=== PATIENT | male | born 1975 ===

== ENCOUNTER 2020-03-20 06:31 | Day surgery (SDC) | payer OTHER ==
[2020-03-17 17:48] VITALS: BMI 33.4
[2020-03-20] MEDS ORDERED: ceFAZolin SODIUM 1 GM VIAL IVPB ONE (08:05)
[2020-03-20] MEDS ORDERED: IOHEXOL 300 MG/ML INFUS..BTL IV ONE ×2 (08:05)
[2020-03-20] MEDS ORDERED: GENTAMICIN SO4 80 MG/2 ML VIAL IVPB ONE (08:05)
[2020-03-20] MEDS ORDERED: ceFAZolin SODIUM 1 GM VIAL ONE (08:08)
[2020-03-20] MEDS ORDERED: GENTAMICIN SO4 80 MG/2 ML VIAL ONE (08:08)
[2020-03-20] MEDS ORDERED: LIDOCAINE HCL/PF 2% SDV 5ML VIAL ONE (08:08)
[2020-03-20] MEDS ORDERED: PROPOFOL 20 ML ONE ×2 (08:09)
[2020-03-20] MEDS ORDERED: MIDAZOLAM HCL 2 MG/2 ML SINGLE DOSE VIAL ONE (08:35)
[2020-03-20] MEDS ORDERED: oxyCODONE HCL 5 MG TABLET PO PRN (10:16)
[2020-03-20] MEDS ORDERED: ONDANSETRON 4 MG/2 ML VIAL IVPUSH PRN (10:16)
[2020-03-20] MEDS ORDERED: PROMETHAZINE HCL 25 MG/1 ML VIAL IVPUSH PRN (10:16)
--- NOTE | 2020-03-20 11:26 | OP ---
Operative Note - Note: Operative Date: 03/20/20 Pre-Operative Diagnosis: right ureteral stone Operation: cystoscopy/right retrograde pyelogram; right ureteroscopic laser lithotripsy; right ureteral stent exchange Findings: 22+ mm x 12+ mm impacted right ureteral stone. 10 mm right lower pole renal stone. Post-Operative Diagnosis: Same as Pre-op Surgeon: Teofilo Gaffney (\) Anesthesia: General Specimens Removed: right ureteral stent Drains & Tubes with Location: 03/17 right ureteral stent Operative Report Dictated: Yes
[2020-03-20 11:54] VITALS: PULSE 87; TEMP 100
[2020-03-20 12:03] VITALS: BP 121/77
--- NOTE | 2020-03-21 07:37 | OP ---
DATE OF OPERATION: 03/20/2020 PREOPERATIVE DIAGNOSIS: Impacted 2.2 plus cm x 1.1 plus cm proximal ureteral stone. POSTOPERATIVE DIAGNOSIS: Impacted 2.2 plus cm x 1.1 plus cm proximal ureteral stone. PROCEDURE: Cystoscopy, right retrograde pyelogram, right ureteroscopic laser lithotripsy and right ureteral stent exchange. ATTENDING: Juancho Shukla MD ANESTHESIA: General. INDICATIONS: Patient has a history of an impacted proximal right ureteral stone. The patient had a stent placed in by another urologist. At this time the patient understands all risks and benefits involving laser lithotripsy of the ureteral stone. Patient accepts the risks and benefits. DESCRIPTION OF OPERATION: The patient was brought into the operating room and placed in a supine position on the operating room table. The patient was given anesthesia and preoperative antibiotics consisting of Ancef and gentamicin. Patient was then placed in the dorsal lithotomy position and prepped and draped in the usual sterile manner. Cystoscopy was performed and the right ureteral stent was noted. Initially 2 wires were placed via the collecting system under cystoscopic fluoroscopic visualization. The 2nd wire went in with mild difficulty. The right ureteral stent was then removed. At this point rigid ureteroscopy was performed. However, due to the angulation and position of the stone rigid ureteroscopy would not offer an acceptable means of performing lithotripsy of the ureteral stone. I must add that there was another stone noted in the right lower pole collecting system measuring about 1 cm. Flexible ureteroscopy was to be performed. It was decided that a 3rd wire would be placed; noted that we have 2 wires left in position during the procedure in order to assure access to the collecting system. The 3rd wire was placed; however, had penetrated the superior renal parenchyma. This is indicative of minimal renal tissue and there is a question of the amount of renal function left in this kidney after longstanding obstruction secondary to the stone. An open-ended wire was placed over the 3rd wire placed and a retrograde pyelogram performed which showed that there was no perforation and no extravasation of Hypaque outside of the kidney. This suggests the wire had penetrated the collecting system and the renal parenchyma and had exited the kidney. The wire was repositioned so it was within the kidney. Followup fluoroscopy showed no evidence of extravasation. At this point it was decided to continue with the laser lithotripsy of the ureteral stone. A holmium laser was utilized as well as a flexible ureteroscope. The flexible ureteroscope was placed over the 3rd wire that had been placed. That wire was removed, leaving 2 wires for emergency access. At this point laser lithotripsy was performed. Excellent fragmentation of the stone was performed. The stone was impacted. After 18 joules of energy had been utilized it was decided that the reduction of the stone size was adequate and the patient would benefit from extracorporeal shockwave lithotripsy of the ureteral stone with a followup ureteroscopy. In addition, the patient will be scheduled for a renal scan in order to document the amount of renal function present within this kidney. I will continue to follow the patient as an outpatient and will check a serum creatinine in 2 weeks as well. The disposition of the patient was to the recovery room. JUANCHO SHUKLA M.D. [id number]
--- NOTE | 2020-03-22 16:04 | PATH ---
Surgical Pathology Report Patient Name: PIETRO MOYA Med. Rec. #: [id number] /Age/Gender: 1975 (Age: 44) / M Account: [id number] Location: [facility] Taken: 03/20/2020 Received: 03/20/2020 Reported: 03/22/2020 Physicians: Teofilo Gaffney Specimen(s) Received OLD STENT Clinical History Calculus of right kidney Final Diagnosis OLD STENT, REMOVAL: CONSISTENT WITH SEGMENT OF STENT. GROSS EXAMINATION ONLY. Electronically Signed Michelle Villaseñor M.D. Gross Description Received fresh labeled "old stent," is a blue, coiled portion of tubing, consistent with a ureteral stent. No soft tissue is present. No sections are submitted, gross only. /03/21/2020 [facility]03/21/2020
== END 2020-03-20 12:30 | disposition home or self-care (01) ==
LOC: JASU-SURG 06:31
PROVIDERS: ATTEND Urology
PROC: 0TF68ZZ Fragmentation in Right Ureter, Via Natural or Artificial Opening Endoscopic (ICD-10-PCS; principal; 2020-03-20 08:00)
PROC: 0T768DZ Dilation of Right Ureter with Intraluminal Device, Via Natural or Artificial Opening Endoscopic (ICD-10-PCS; 2020-03-20 08:00)
PROC: BT1DYZZ Fluoroscopy of Right Kidney, Ureter and Bladder using Other Contrast (ICD-10-PCS; 2020-03-20 08:00)
DX: N20.1 Calculus of ureter (principal)
CPT/HCPCS: 76000-TC-FY; 88300-TC; 94760

== ENCOUNTER 2020-05-01 05:24 | Day surgery (SDC) | payer OTHER ==
[2020-04-27 15:20] VITALS: BMI 33.4
[2020-05-01] MEDS ORDERED: MIDAZOLAM HCL 2 MG/2 ML SINGLE DOSE VIAL ONE (15:23)
[2020-05-01] MEDS ORDERED: MINERAL OIL/PETROLATUM,WHITE 3.5 GM TUBE ONE (15:23)
[2020-05-01] MEDS ORDERED: PROPOFOL 20 ML ONE ×3 (15:25)
[2020-05-01] MEDS ORDERED: ONDANSETRON 4 MG/2 ML VIAL IVPUSH PRN (16:14)
--- NOTE | 2020-05-01 16:17 | OP ---
Operative Note - Note: Operative Date: 05/01/20 Pre-Operative Diagnosis: Right proximal ureter stone Operation: Right ESWL Findings: 15 mm proximal ureter Left stone Post-Operative Diagnosis: Same as Pre-op Surgeon: Teofilo Gaffney Anesthesia: Regional Estimated Blood Loss (mls): 0 Drains & Tubes with Location: JJ stend Right Operative Report Dictated: Yes
[2020-05-01 16:35] VITALS: TEMP 97.8
[2020-05-01 17:20] VITALS: BP 120/79; PULSE 77
--- NOTE | 2020-05-01 20:47 | OP ---
DATE OF OPERATION: 05/01/2020 PREOPERATIVE DIAGNOSIS: Right proximal ureteral stone. POSTOPERATIVE DIAGNOSIS: Right proximal ureteral stone. PROCEDURE: Right extracorporeal shock wave lithotripsy. ATTENDING: Teofilo Constantino MD ANESTHESIA: Fractional. DESCRIPTION OF OPERATION: The patient was brought in the operating room and placed in supine position on the operating room table. Ultrasonography and fluoroscopy were performed. A 15-mm-plus right ureteral stone was identified. The stone had previously been laser lithotripsied in order to reduce the stone burden. The stone initially was greater than 2 cm x 1+ cm. Patient had a stent in place. Once anesthesia and antibiotics had been administered, shock wave lithotripsy was performed on the stone fragments; 3000 impulses at 20 joules of power were administered to the stone with excellent fragmentation of the stone under real-time ultrasonography and fluoroscopy. No complications were noted. The patient tolerated the procedure very well. The disposition of the patient was to the recovery room. Harpreet [id number]
== END 2020-05-01 16:45 | disposition home or self-care (01) ==
LOC: JASU-SURG 05:24
PROVIDERS: ATTEND Urology
PROC: 0TF3XZZ Fragmentation in Right Kidney Pelvis, External Approach (ICD-10-PCS; principal; 2020-05-01 15:15)
DX: N20.1 Calculus of ureter (principal)

== ENCOUNTER 2020-09-18 04:57 | Day surgery (SDC) | payer OTHER ==
[2020-09-13 10:03] VITALS: BMI 33.4
[2020-09-18] MEDS ORDERED: MIDAZOLAM HCL 2 MG/2 ML SINGLE DOSE VIAL ONE (17:34)
[2020-09-18] MEDS ORDERED: DEXAMETHASONE SOD PHOSPHATE 4 MG/1 ML VIAL ONE (18:17)
[2020-09-18] MEDS ORDERED: KETOROLAC TROMETHAMINE 30 MG/1 ML VIAL ONE (18:17)
[2020-09-18 19:46] VITALS: BP 120/83; PULSE 78; TEMP 97.1
== END 2020-09-18 19:50 | disposition home or self-care (01) ==
LOC: JASU-SURG 04:57
PROVIDERS: ATTEND Urology
PROC: 0TF3XZZ Fragmentation in Right Kidney Pelvis, External Approach (ICD-10-PCS; principal; 2020-09-18 15:00)
DX: N20.0 Calculus of kidney (principal)

== ENCOUNTER 2020-10-27 13:26 | Inpatient (IN) | payer OTHER ==
[2020-10-27 13:36] VITALS: BMI 29.8
[2020-10-27 14:47] LABS: BASO % 1.3 % (0-2.0); EOS % 8.3 % (0-4.5); HEMATOCRIT 43.8 % (35.4-49); HEMOGLOBIN 14.6 GM/dL (11.7-16.9); LYMPH % 32.3 % (8-40); MCH 27.2 pg (25.7-33.7); MCHC 33.3 g/dl (32.0-35.9); MEAN CELL VOLUME 81.7 fl (80-96); MEAN PLT VOLUME 8.9 fl (7.5-11.1); MONO % 10.3 % (3.8-10.2); NEUT % 47.8 % (42.8-82.8); PLATELET COUNT 276 K/MM3 (134-434); RBC 5.36 M/mm3 (4.00-5.60); RDW 13.8 % (11.9-15.9); WHITE BLOOD COUNT 5.7 K/mm3 (4.0-10.0)
[2020-10-27 14:54] LABS: INR 0.97 (0.83-1.09); PROTHROMBIN TIME (PATIENT) 11.9 SEC (9.7-13.0)
[2020-10-27 14:57] LABS: ACTIVATED PTT 37.9 SECONDS (25.2-36.5)
[2020-10-27 15:06] LABS: POTASSIUM 4.1 mmol/L (3.5-5.1)
[2020-10-27 15:08] LABS: ALBUMIN 4.1 g/dl (3.4-5.0); BLOOD UREA NITROGEN 12.4 mg/dL (7-18); CALCIUM 9.4 mg/dL (8.5-10.1)
[2020-10-27 15:11] LABS: CREATININE 1.3 mg/dL (0.55-1.3)
[2020-10-27 15:13] LABS: BILIRUBIN,TOTAL 0.4 mg/dL (0.2-1); TOT PROT 7.6 g/dl (6.4-8.2)
[2020-10-27] MEDS ORDERED: ACETAMINOPHEN 325 MG TABLET (FP) PO PRN (16:24)
[2020-10-27] MEDS ORDERED: SODIUM CHLORIDE 1,000 ML IV SCH (16:30)
[2020-10-27] MEDS ORDERED: PROPOFOL 20 ML ONE ×2 (17:54)
[2020-10-27] MEDS ORDERED: MIDAZOLAM HCL 2 MG/2 ML SINGLE DOSE VIAL ONE (17:55)
[2020-10-27] MEDS ORDERED: LACTATED RINGERS SOLUTION 1,000 ML IV SCH (19:30)
[2020-10-27 20:31] VITALS: BP 121/69; PULSE 81; TEMP 97.7
[2020-10-28] MEDS ORDERED: PANTOPRAZOLE 40 MG TABLET PO SCH (10:00)
== END 2020-10-27 20:20 | disposition home or self-care (01) | DRG 465 ==
LOC: JER 13:26 → JERBED 15:39
PROVIDERS: ADMIT Internal Medicine; ATTEND Internal Medicine
PROC: 0T768DZ Dilation of Right Ureter with Intraluminal Device, Via Natural or Artificial Opening Endoscopic (ICD-10-PCS; principal; 2020-10-27 17:00)
PROC: BT1DYZZ Fluoroscopy of Right Kidney, Ureter and Bladder using Other Contrast (ICD-10-PCS; 2020-10-27 17:00)
DX: N13.1 Hydronephrosis with ureteral stricture, not elsewhere classified (principal); N17.9 Acute kidney failure, unspecified
CPT/HCPCS: 36415; 71045-TC-FY; 76000-TC-FY; 80053; 85025; 85610; 85730; 87070; 87075; 87086; 87205; 93005; 93010; 94760; 99285-25; C9803; U0003